=== PATIENT | female | born 1965 | race American Indian/Alaskan Native ===

== ENCOUNTER 2019-06-10 09:53 | Outpatient (CLI) | payer MEDICAID ==
[2019-06-10 10:23] LABS: Hematocrit 34.6 % (30.3-42.9); Hemoglobin 11.6 gm/dl (10.1-14.3); Mean Corpuscular HGB Conc 34 % (30-34); Mean Corpuscular Volume 87 fl (79-97); Platelet Count 306 K/mm3 (140-440); Red Blood Count 3.96 M/mm3 (3.65-5.03); Red Cell Distribution Width 15.5 % (13.2-15.2)
[2019-06-10 10:36] LABS: Erythrocyte Sedimentation Rate 13 mm/Hr (0-20)
[2019-06-10 10:46] LABS: Alanine Aminotransferase 7 units/L (7-56); Albumin 4.3 g/dL (3.9-5); BUN/Creatinine Ratio 21; Blood Urea Nitrogen 15 mg/dL (7-17); Hemolysis Index 3
== END 2019-06-10 09:54 | disposition home or self-care (01) ==
LOC: LAB 09:53
PROVIDERS: ATTEND Specialist
DX: G93.41 Metabolic encephalopathy (principal)
CPT/HCPCS: 36415; 80053; 82306; 82607; 83921; 84443; 85027; 85652; 86592

== ENCOUNTER 2019-06-20 07:53 | Day surgery (SDC) | payer MEDICAID ==
[2019-06-20] MEDS ORDERED: fentaNYL 100 MCG/2 ML INJ ONE (08:08)
[2019-06-20] MEDS ORDERED: dexAMETHasone 20 MG/5 ML VIAL ONE (08:08)
[2019-06-20] MEDS ORDERED: ONDANSETRON 4 MG/2 ML INJ ONE (08:08)
[2019-06-20] MEDS ORDERED: propofoL 200 MG/20 ML VIAL IV ONE (08:08)
[2019-06-20] MEDS ORDERED: LIDOCAINE MPF (2%) 20 MG/1 ML VIAL 5 ML ONE (08:08)
[2019-06-20] MEDS ORDERED: fentaNYL 100 MCG/2 ML INJ IV PRN (09:16)
--- NOTE | 2019-06-20 09:16 | Anesthesia Consultation ---
Anesthesia Consult and Med Hx Date of service: 06/20/19 - Airway Anesthetic Teeth Evaluation: Good, Chipped (bottom riight premolar) ROM Head & Neck: Adequate Mental/Hyoid Distance: Adequate Mallampati Class: Class I Intubation Access Assessment: Good - Pulmonary Exam CTA: Yes - Cardiac Exam Cardiac Exam: RRR - Pre-Operative Health Status ASA Pre-Surgery Classification: ASA2 Proposed Anesthetic Plan: General - Pulmonary Hx Smoking: No Hx Respiratory Symptoms: No Hx Sleep Apnea: No (TALIB PRE SCREEN LOW RISK.) - Cardiovascular System Hx Hypertension: Yes (associated with painl; no meds) Hx Heart Attack/AMI: No - Central Nervous System CVA: No Hx Back Pain: Yes (ALSO NECK PAIN) Hx Psychiatric Problems: Yes - Gastrointestinal Hx Gastroesophageal Reflux Disease: No - Endocrine Hx Renal Disease: No Hx Liver Disease: No Hx Non-Insulin Dependent Diabetes: Yes Hx Thyroid Disease: No - Other Systems Hx Obesity: No - Additional Comments Anesthesia Medical History Comments: Hx delayed emergence
--- NOTE | 2019-06-20 09:17 | Anesthesia Day of Surgery ---
Anesthesia Day of Surgery - Day of Surgery Patient Examined: Yes Patient H&P Reviewed: Yes Patient is NPO: Yes
[2019-06-20] MEDS ORDERED: MIDAZOLAM 2 MG/2 ML INJ IV NR (09:36)
[2019-06-20] MEDS ORDERED: LACTATED RINGERS 1,000 ML IV SCH (10:00)
--- NOTE | 2019-06-20 11:01 | Short Stay Summary ---
Short Stay Documentation Date of service: 06/20/19 - History H&P: obtained from office - Allergies and Medications Current Medications: Allergies cephalexin [From Keflex] Adverse Reaction (Intermediate, Verified 06/10/19 14:58) Hives pregabalin [From Lyrica] Adverse Reaction (Verified 06/10/19 14:58) Unknown Home Medications Medication Instructions Recorded Confirmed Last Taken Type Ambien 10 mg PO HS 06/10/19 06/10/19 06/19/19 History Calcium Citrate/Vitamin D3 1 tab PO DAILY 06/10/19 06/10/19 06/19/19 History Cyclobenzaprine 10 mg PO TID 06/10/19 06/10/19 06/19/19 History HYDROcodone/ACETAMINOPHEN 5 mg PO PRN 06/10/19 06/10/19 06/19/19 History Ibuprofen [Motrin 800 MG tab] 800 mg PO DAILY 06/10/19 06/20/19 06/19/19 History One-Daily Multi-Vitamin 1 cap PO DAILY 06/10/19 06/10/19 06/19/19 History Vitamin C with Kayli Hips 500 mg PO PRN 06/10/19 06/10/19 06/19/19 History metFORMIN 1,000 mg PO BID 06/10/19 06/10/19 06/19/19 History Active Medications Fentanyl (Sublimaze) 50 mcg IV Q5MIN PRN PRN Reason: Pain , Severe (7-10) Stop: 06/20/19 20:00 Lactated Ringer's (Lactated Ringers) 1,000 mls @ 100 mls/hr IV DIRECT ANSHUL Last Admin: 06/20/19 09:45 Dose: 100 mls/hr Documented by: Midazolam HCl (Versed) 2 mg IV ONCE NR Stop: 06/20/19 22:00 Last Admin: 06/20/19 09:45 Dose: 2 mg Documented by: - Brief post op/procedure progress note Date of procedure: 06/20/19 Pre-op diagnosis: left renal stone Post-op diagnosis: same Procedure: ESWL Anesthesia: GETA Surgeon: WYATT HOUSTON Condition: stable - Hospital course Hospital course: dylanm,noretienne, post op info on chart - Disposition Condition at discharge: Stable Disposition: DC-01 TO HOME OR SELFCARE Short Stay Discharge Plan Follow up with: TRAN THOMPSON MD [Primary Care Provider] - 7 Days
--- NOTE | 2019-06-20 11:13 | Operative Report ---
PREOPERATIVE DIAGNOSIS: Left renal stone, 6 mm. POSTOPERATIVE DIAGNOSIS: Left renal stone, 6 mm. PROCEDURE: Extracorporal shock wave lithotripsy. SURGEON: Mani Daniel MD ANESTHESIA: General. ESTIMATED BLOOD LOSS: Minimal. FLUIDS: Crystalloid. COMPLICATIONS: No complications. INDICATIONS: This patient is a 54-year-old female seen by Dr. Garrido in the office. CT revealed 6 mm left renal stone. She presents now for intervention. Risks, benefits, and complications were explained. PROCEDURE: The patient was taken to the operative suite, placed in a supine position. After adequate general anesthesia, stone was localized in 2 planes using fluoroscopy. Extracorporal shock wave lithotripsy was administered a maximum kV of 8 and 2500 shocks. A 5-minute renal pause after 200 shocks was performed. The patient tolerated the procedure well. Adequate fragmentation could be appreciated. She was extubated and taken to recovery room. She will go home on [employer] and follow up in the office. JOB# [id number] [facility]
--- NOTE | 2019-06-20 14:01 | Post Anesthesia Evaluation ---
- Post Anesthesia Evaluation Patient Participated: Yes Airway Patent: Yes Stable Respiratory Function: Yes Nausea/Vomiting: No Temp > 96.8F: Yes Pain Manageable: Yes Adequeate Hydration: Yes Anesthesia Complications: No
[2019-06-20 21:46] VITALS: BP 142/82
== END 2019-06-20 07:54 | disposition home or self-care (01) ==
LOC: OR 07:53
PROVIDERS: ATTEND Urology
DX: N20.0 Calculus of kidney (principal); I10 Essential (primary) hypertension; M19.90 Unspecified osteoarthritis, unspecified site; E11.9 Type 2 diabetes mellitus without complications; F32.9 Major depressive disorder, single episode, unspecified; D64.9 Anemia, unspecified; Z98.890 Other specified postprocedural states; Z90.710 Acquired absence of both cervix and uterus; Z88.8 Allergy status to other drugs, medicaments and biological substances; Z79.899 Other long term (current) drug therapy; Z79.84 Long term (current) use of oral hypoglycemic drugs
CPT/HCPCS: 50590; 82962; J1100; J1956; J2250; J2405; J2704; J3010; J7120